=== PATIENT | female | born 1975 | race Caucasian/White ===

== ENCOUNTER 2018-08-19 15:16 | Observation (INO) ==
[2018-08-19] MEDS ORDERED: Naloxone 0.4 MG/ML INJ IVP PRN (20:16)
[2018-08-19] MEDS ORDERED: *HR* Dextrose 50 % in Water (Syg) 50 ML SYRINGE IVP PRN (20:19)
[2018-08-19] MEDS ORDERED: D5% in Water 1,000 ML IVC PRN (20:19)
[2018-08-19] MEDS ORDERED: Dextrose Gel 15 GM/37.5 ML TUBE PO PRN ×2 (20:19)
--- NOTE | 2018-08-19 20:49 | Internal Med History&Physical ---
Date of Encounter: 08/19/18 Time of Encounter: 20:46 Internal Medicine - H&P: HPI Chief complaint: Chest pain History of present illness: Ms. Krishnan is a 42 year old female with past medical history of obesity, hyperlipidemia, diabetes, hypertension and obstructive sleep apnea who initially presented to [facility] due to complaints of chest pain. Patient states that the pain began Wednesday while seated at restoration. Described as left-sided heaviness associated with shortness of breath and an intermittent "vibrating" sensation in her left arm. Patient states these episodes have been on and off for the past 2 days but does state that sometimes the vibrating sensation in her left arm may occur as an isolated event. States that chest pain typically lasts a minute when it occurs at rest. However, notes that it may last longer and resolves after she rests. Patient states that she was seen by urgent care earlier this morning for a boil. Was subsequently referred to the ED when she became lightheaded upon standing. She also reports for the past 2 days. Patient noticed heaviness in the chest associated with shortness of breath and lightheadedness. Family history significant for [place] on her mother and father's side. Patient received loading dose of aspirin by EMS. Denies any fever or headache, abdominal pain, nausea, vomiting or diarrhea. Initial troponin and EKG findings were negative. Patient states that she has an appointment with cardiology next week in [place] with a Dr. Mcmanus. Patient currently chest pain-free. Past Med Surg Social Fam HX - Past Medical History Medical history: diabetes, hypertension, myocardial infarction, other Psychiatric history: anxiety, depression - Past Surgical History Surgical History: hysterectomy, orthopedic, other Additional surgical history: TONSILLECTOMY, FOOT SURGERY - Social History Smoking Status: Former smoker Smokeless Tobacco Status: No Alcohol use: none Drug use: none - Family History Father Family Member Ethnicity: Non- Living Status: Hx Family Cardiac Disorders: Yes Mother Family Member Ethnicity: Non- Living Status: Still Living Hx Family Respiratory Disorders: Yes (COPD) Internal Medicine - H&P: Meds Glimepiride [Amaryl] 4 mg PO BID 05/02/15 [History] Insulin ASPART [NovoLOG] 25 unit SQ TIDWM 05/02/15 [History] Insulin Glargine,Hum.rec.anlog [Lantus Solostar] 100 unit SQ BID 05/02/15 [History] LORazepam [Ativan] 1 mg PO BID 05/02/15 [History] Metformin [Glucophage] 1,000 mg PO BID 05/02/15 [History] Orphenadrine [Norflex] 100 mg PO BID PRN #10 tablet.er 02/16/16 [Rx] Atorvastatin Calcium [Lipitor] 20 mg PO HS 09/03/16 [History] Buspirone HCl [Buspar] 5 mg PO BID 09/03/16 [History] Cholecalciferol (D-3) [Vitamin D] 1,000 unit PO DAILY 09/03/16 [History] Empagliflozin [Jardiance] 10 mg PO DAILY 09/03/16 [History] Gabapentin [Neurontin] 800 mg PO BID 09/03/16 [History] Liraglutide [Victoza 3-Brian] 1.8 mg SQ HS 09/03/16 [History] Magnesium Oxide [Magnesium] 400 mg PO HS 09/03/16 [History] Melatonin [Melatin] 3 mg PO HS PRN 09/03/16 [History] Omeprazole [PriLOSEC] 40 mg PO DAILY 09/03/16 [History] Paroxetine HCl [Paxil] 40 mg PO DAILY 09/03/16 [History] Tramadol HCl [Ultram] 50 mg PO BID PRN 09/03/16 [History] hydroCHLOROthiazide [Hydrochlorothiazide] 25 mg PO DAILY 09/03/16 [History] Allergy/AdvReac Type Severity Reaction Status Date / Time clindamycin Allergy Rash Verified 09/03/16 07:39 All Systems PM: A 10-system review of systems was performed and is negative for pertinent findings except as documented above in the HPI. - Constitutional Constitutional: no chills, no fever(s), no night sweats - EENT Eyes: no change in vision, no discharge, no pain, no photophobia Ears: no ear discharge, no ear pain, no tinnitus Nose, mouth and throat: no dysphagia, no nasal discharge, no neck pain, no sore throat - Cardiovascular Cardiovascular ROS IM: no chest pain, no diaphoresis, no dyspnea, no lightheadedness, no palpitations, no syncope - Respiratory Respiratory: no cough, no dyspnea, no wheezing, no excessive phlegm production - Gastrointestinal Gastrointestinal: no abdominal pain, no diarrhea, no hematemesis, no hematochezi a, no melena, no nausea, no vomiting - Genitourinary Genitourinary: no change in urinary stream, no dysuria, no flank pain, no hematuria - Musculoskeletal Musculoskeletal ROS IM: no numbness, no tingling - Integumentary Integumentary IM: no rash, no unusual bruising - Neurological Neurological ROS: no confusion, no convulsions, no focal weakness, no numbness, no tingling, no tremor(s) - Hematologic/Lymphatic Hematologic/Lymphatic: no easy bruising - Constitutional Vitals: Temp Pulse Resp BP Pulse Ox 98 F 87 16 111/71 96 08/19/18 20:28 08/19/18 20:28 08/19/18 20:28 08/19/18 20:28 08/19/18 20:28 Exam: General: Alert and oriented Skin:Normal color, no rash, no lesions. HEENT:EOM, pupils equal, round and reactive. Cardiovascular:Normal S1 & S2, no rubs, murmurs or gallops. No JVD. Pulse regular. Lungs:Normal breath sounds, no wheezes or crackles. Abdomen:Soft, non-tender, no rigidity. Extremities:No deformity, no edema or tenderness, no joint swelling or clubbing. Neurological:Normal cognition and motor skills. Pulses:Carotid and radial pulses normal +2. Rest of the physical exam is non contributory Internal Med - H&P Results - Labs CBC & Chem 7: 08/19/18 20:35 08/19/18 20:35 - Assessment and plan (1) Chest pain, rule out acute myocardial infarction Current Visit: Yes Status: Acute Assessment and plan: Patient presents with left-sided chest heaviness associated with vibrating sensation in her left arm; occurring at rest and with exertion. Nonpleuritic, nonreproducible. Patient has significant risk factors for coronary artery disease including obesity, hypertension, diabetes, previous smoking history and obstructive sleep apnea. Initial troponin negative. EKG does not show any ischemic changes. Patient received loading dose of aspirin and is currently chest pain-free. Has appointment with cardiology scheduled in one week. -Telemetry -Trend troponin; hold off anticoagulation unless troponin rises -Given patient's risk factors would appreciate cardiology involvement before any further workup including stress testing. Addendum: Patient's second troponin came back slightly elevated at 0.06 and then subsequently dropped to 0.03. Discussed case with Dr. Vallejo with cardiology. No recommendation for heparin at this time and he will see patient in the morning. (2) Obstructive sleep apnea Current Visit: Yes Status: Acute Assessment and plan: History of obstructive sleep apnea on CPAP. Continue CPAP at night (3) Diabetes type 2, uncontrolled Current Visit: No Status: Acute Assessment and plan: Diabetic diet. Blood glucose checks. Sliding scale insulin. Qualifiers: Qualified Code(s): E11.65 - Type 2 diabetes mellitus with hyperglycemia (4) Hypertension Current Visit: No Status: Acute Assessment and plan: Blood pressure stable. Resume home antihypertensives. Monitor. Qualifiers: Hypertension type: unspecified Qualified Code(s): I10 - Essential (primary) hypertension (5) DVT prophylaxis Current Visit: Yes Status: Acute Assessment and plan: Subcutaneous heparin - Time Spent With Patient Total time spent is greater than 50% in coordination of care (as documented) at patient's floor/unit and/or counseling patient:
[2018-08-19 21:16] LABS: Basophils # 0.1 K/mcL (0.0-0.2); Basophils % 0.5 %; Eosinophils # 0.2 K/mcL (0.0-0.6); Eosinophils % 1.6 %; Hematocrit 36.8 % (35.3-44.9); Hemoglobin 11.6 g/dL (11.5-15.4); Immature Granulocytes % 1.3 % (0-4); Lymphocytes # 3.2 K/mcL (0.6-4.6); Lymphocytes % 23.4 %; Mean Corpuscular HGB Conc 31.5 g/dL (31.6-35.5); Mean Corpuscular Hemoglobin 30.2 pg (28.0-33.3); Mean Corpuscular Volume 95.8 fL (83.0-100.0); Mean Platelet Volume 9.7 fL (9.4-12.4); Monocytes # 0.9 K/mcL (0.0-1.3); Monocytes % 6.7 %; Platelet Count 290 K/mcL (140-400); Red Blood Count 3.84 M/mcL (3.82-4.97); Red Cell Distribution Width 13.2 % (11.5-14.5); Segmented Neutrophils % 66.5 %
[2018-08-19 21:34] LABS: Estimated Average Glucose 220 mg/dl; Hemoglobin A1C 9.3 %
[2018-08-19 21:37] LABS: Albumin 3.4 g/dL (3.5-5.7); Albumin/Globulin Ratio 1.1 (1.1-2.2); Bilirubin,Total 0.2 mg/dL (0.3-1.0); Calcium 8.7 mg/dL (8.6-10.3); Chol/HDL Ratio 4.6 (0-4.9); Magnesium 1.5 mg/dL (1.6-2.6); Potassium 3.7 mEq/L (3.5-5.1); Total Protein 6.4 g/dL (6.4-8.9)
[2018-08-19] MEDS: Insulin LISPRO 300 UNITS/3 ML VIAL SQ SCH (22:26)
[2018-08-19] MEDS: *HR* Heparin 5,000 UNIT/ML VIAL SQ SCH (22:27)
[2018-08-20] MEDS: *HR* Heparin 5,000 UNIT/ML VIAL SQ SCH ×3 (05:47→20:40)
[2018-08-20] MEDS: Insulin LISPRO 300 UNITS/3 ML VIAL SQ SCH ×3 (07:44→16:14)
--- NOTE | 2018-08-20 12:47 | Cardiology Consult Note ---
<Zach Mcmanus - Last Filed: 08/20/18 12:47> Date of Encounter: 08/20/18 Time of Encounter: 12:30 Assessment and Plan (1) Chest pain, rule out acute myocardial infarction Status: Acute Per Cardiology: Initial troponin 0.06 and subsequently negative. Currently chest pain-free. Does have significant risk factors for CAD. Negative stress test in 2013. We will check another troponin. Check echocardiogram. Plan to proceed with nonexercise nuclear stress test-- will require today testing due to BMI. We will consider left heart catheterization if any concerning findings on repeat troponin or echocardiogram. Patient verbalized understanding and agreed with plan. Discussed with primary service. Discussed with Dr. Vallejo. (2) Palpitations Status: Acute Per Cardiology: Apparent pending follow-up appointment with cardiology next few weeks in outpatient setting for palpitations. Currently denies any symptoms. Telemetry reviewed with average heart rate passed 24 hours 89, no events appreciated. Discussion w patient/family: The assessment and plan as outlined above was discussed with the patient who expressed understanding and agreement. All questions were answered. Thank you for involving us in the care of your patient. Please call with any questions. History of Present Illness Consult date: 08/20/18 Requesting physician: Deejay Munoz Consult reason: CP, Mild trop Chief complaint: CP History of present illness: Ms. Krishnan is a 42 year old female with a relevant past medical history of morbid obesity, DM 2, past history of nicotine abuse smoking a pack and a half per day for 20 years-- reports quit smoking 3 years ago, hypertension, hyperlipidemia, CLAUDINE with CPAP. Reports positive family history with father with CAD/MA and bypass surgery beginning in his 40s. Cardiology consult for chest pain and initial mild troponin elevation. Patient reports pending outpatient follow-up with cardiology in a few weeks per PCP for concerns of palpitations and fluttering sensations intermittently over the past few weeks. She indicates a few days ago she developed midsternal chest pressure/heaviness at rest and with exertion. She reports symptoms currently subsided. She does report over the past few weeks overall increase in fatigue. She does report worsening dyspnea on exertion over the past few weeks as well. She denies any edema. Denies any active bleeding or blood loss. Denies any dizziness, syncope, falls. Reports no recent cardiac testing. Past Med Surg Social Fam HX - Past Medical History Attestation: Yes The following information was validated with the patient. Source: patient, old records reviewed Medical history: diabetes, hypertension, myocardial infarction, other Psychiatric history: anxiety, depression - Past Surgical History Surgical History: hysterectomy, orthopedic, other Additional surgical history: TONSILLECTOMY, FOOT SURGERY - Social History Smoking Status: Former smoker Smokeless Tobacco Status: No Alcohol use: none Drug use: none - Family History Father Family Member Ethnicity: Non- Living Status: Hx Family Cardiac Disorders: Yes Mother Family Member Ethnicity: Non- Living Status: Still Living Hx Family Respiratory Disorders: Yes (COPD) Medications and Allergies Orphenadrine [Norflex] 100 mg PO BID PRN #10 tablet.er 02/16/16 [Rx] Atorvastatin Calcium [Lipitor] 20 mg PO HS 09/03/16 [History] Liraglutide [Victoza 3-Brian] 1.8 mg SQ HS 09/03/16 [History] Omeprazole [PriLOSEC] 40 mg PO DAILY 09/03/16 [History] Duloxetine HCl [Cymbalta] 60 mg PO BID 08/20/18 [History] Ergocalciferol (VITAMIN D2) [Vitamin D2] 50,000 unit PO QWEEK 08/20/18 [History] HydrOXYzine 10 mg PO BID 08/20/18 [History] Insulin Regular U-500 [HumuLIN R U-500] 145 unit SQ BID 08/20/18 [History] Losartan/Hydrochlorothiazide [Hyzaar 100-25 Tablet] 1 tab PO DAILY 08/20/18 [History] Pregabalin [Lyrica] 50 mg PO TID 08/20/18 [History] Quetiapine Fumarate [Seroquel] 50 mg PO DAILY 08/20/18 [History] dilTIAZem HCl [Diltiazem 24Hr ER] 120 mg PO DAILY 08/20/18 [History] Allergy/AdvReac Type Severity Reaction Status Date / Time clindamycin Allergy Rash Verified 09/03/16 07:39 All Systems Review: The remainder of the systems were reviewed and are negative - Constitutional Constitutional: fatigue - Cardiovascular Cardiovascular: as per HPI, chest pain at rest, chest pain with exertion, dyspnea on exertion Physical Examination Vital Signs, Last 4 Hours Temp Pulse Resp BP Pulse Ox 08/20/18 11:05 97.9 F 86 16 115/77 95 General: Conversant, No Apparent Distress HEENT: Atraumatic, Normocephaly, Mucus Membranes Moist Neck: No JVD, Normal carotid pulses Cardiac: Reg Rate and Rhythm, Normal S1 and S2, No Murmur Lungs: Normal Breath Sounds, No Wheeze, Rales, Rhonchi Neuro: Alert and responsive, No focal deficits noted Abdomen: Soft, Non-Tender, Other (Morbidly obese) Skin: No rashes noted on visualized skin Musculoskeletal: No Chest Wall Tenderness Extremities: No Clubbing, No Cyanosis, No Edema, Normal Pulses Results 08/19/18 20:35 08/19/18 20:35 Lab Results Laboratory Tests 08/19/18 08/19/18 08/19/18 20:35 20:35 20:35 WBC 13.6 H Hgb 11.6 Hct 36.8 Creatinine 1.46 H Est GFR (Non-Af Amer) 39 L Hemoglobin A1c 9.3 H Magnesium 1.5 L AST 11 L ALT 13 Troponin I LDL Cholesterol, Calc 37 08/19/18 08/20/18 20:35 03:17 WBC Hgb Hct Creatinine Est GFR (Non-Af Amer) Hemoglobin A1c Magnesium AST ALT Troponin I 0.06 H* < 0.03 LDL Cholesterol, Calc Active Medications Dextrose/Water (Dextrose 50% (Syg)) 25 ml IVP AD PRN PRN Reason: Hypoglycemia Stop: 02/18/19 20:20 Glucagon (Glucagen) 1 mg IM ONCE PRN PRN Reason: Hypoglycemia Stop: 02/18/19 20:20 Glucose (Gluctose) 15 gm PO ONCE PRN PRN Reason: Hypoglycemia Stop: 02/18/19 20:20 Glucose (Gluctose) 30 gm PO ONCE PRN PRN Reason: Hypoglycemia Stop: 02/18/19 20:20 Heparin Sodium (Porcine) (Heparin) 5,000 unit SQ Q8HCO JOVANNY Stop: 02/18/19 22:01 Last Admin: 08/20/18 05:47 Dose: 5,000 unit Dextrose (Dextrose 5%) 1,000 mls @ 100 mls/hr IVC .Q10H PRN PRN Reason: HYPOGLYCEMIA Stop: 02/18/19 20:20 Insulin Human Lispro (Humalog) 0 units SQ TIDAC [facility]; Protocol Stop: 02/18/19 20:31 Last Admin: 08/20/18 12:02 Dose: Not Given Naloxone HCl (Narcan) 0.4 mg IVP Q2MIN PRN PRN Reason: SEE COMMENTS Stop: 02/18/19 20:17 - Imaging and Cardiology Stress Test: pending Echo: pending - EKG Interpretation EKG results cardiology: personally reviewed, normal ECG, sinus rhythm, no diagnostic ischemia Consult Discharge Plan - Plan Instructions: Angina (DC) Additional Instructions: Please check with Dr. Malagon regarding being on both Paxil and Cymbalta. (No Paxil filled since 11/2017) Referrals: Arielle Malagon MD [Primary Care Provider] - (Please call PCP to schedule follow up 7 days from visit.) <YoniColby Silva - Last Filed: 08/21/18 19:50> Date of Encounter: 08/21/18 Time of Encounter: 17:00 - Attending Attestation I have personally performed a face to face evaluation on this patient. I have reviewed and agree with the care plan. History and Exam by me shows: cc; shortness of breath HPI: Hx obtained from medical record, pt has dementia, not a reliable historian [facility] with complaints of increasing shortness of breath and labored breathing over last three days. Pt had and echo ordered to evaluate LV function, reportedly EF decreased, consult placed to evaluate lowered EF. ROS: reviewed PMH; reviewed Labs and Xrays reviewed PE; pt seen and examined, agree with findings as documented. IMP/Plan: 1. Profound confusion, secondary to previous stroke, multiple brain surgeries for cancer, pt unalbe to relate symptoms 2. Increased shortness of breath, multifactorial, is responding to IV diuresis, beta blockers, would continue non-invasive strategy, Pt is not a candidate for invasive approach. Assessment and Plan Discussion w patient/family: The assessment and plan as outlined above was discussed with the patient and/or family members who expressed understanding and agreement. All questions were answered. Thank you for involving us in the care of your patient. Please call with any questions. History of Present Illness History of present illness: Ms. Krishnan is a 42 year old female All Systems Review: The remainder of the systems were reviewed and are negative Results 08/21/18 11:10 08/21/18 11:10 Lab Results 08/21/18 08/21/18 11:10 11:10 WBC 13.3 H Hgb 12.5 Hct 39.0 Plt Count 307 Sodium 136 Potassium 4.7 Chloride 102 Carbon Dioxide 27 BUN 29 H Creatinine 1.32 H Glucose 324 H Calcium 9.4 Magnesium 1.7
[2018-08-20] MEDS ORDERED: Perflutren Lipid Microsphere 1.3 ML in 0.9 % Sodium Chloride 8.7 ML IVP ONE (14:16)
[2018-08-20] MEDS ORDERED: Perflutren Lipid Microsphere 2 ML VIAL ONE (14:18)
--- NOTE | 2018-08-20 19:46 | Internal Med Progress Note ---
Hospitalist Progress Note - Encounter Date of Encounter: 08/20/18 Time of Encounter: 14:00 - Subjective Interval History: Ms Krishnan is currently in observation for chest pain. She remains moderate to high risk. Ms Krishnan had first part of stress test today. No further chest pain. No fever or chills. No abd pain or other new symptoms. - Exam Vitals: Temp Pulse Resp BP Pulse Ox 98.5 F 92 16 123/85 96 08/20/18 19:05 08/20/18 19:05 08/20/18 19:05 08/20/18 19:05 08/20/18 19:05 Exam: General: Alert and oriented. Comfortable at this time. Skin: Normal color, no rash, no lesions. H: Normocephalic. EENT: EOMI, pupils equal. Mucus membranes moist. Cardiovascular: Normal S1 & S2, no murmurs or gallops. Pulse regular. Lungs: Normal breath sounds, no wheezes or crackles. Abdomen: Soft, non-tender, no rigidity. Normal bowel sounds. Extremities: No deformity, no edema or tenderness, Neurological: Normal cognition and motor skills. Pulses: Carotid and radial pulses normal +2. Rest of the physical exam is non contributory - Assessment and Plan (1) Chest pain, rule out acute myocardial infarction Current Visit: Yes Status: Acute Assessment and Plan: Pt presented with chest pain. Now is asymptomatic Stress test ordered - first part done today. (2) Diabetes type 2, uncontrolled Current Visit: No Status: Chronic Assessment and Plan: Blood sugar uncontrolled. Currently getting insulin coverage. (3) Hypertension Current Visit: No Status: Chronic Assessment and Plan: Appears to be controlled at this time. (4) Obstructive sleep apnea Current Visit: Yes Status: Chronic Assessment and Plan: History of obstructive sleep apnea on CPAP. Continue CPAP at night (5) DVT prophylaxis Current Visit: Yes Status: Acute (6) Morbid obesity with BMI of 50.0-59.9, adult Current Visit: Yes Status: Chronic Assessment and Plan: Chronic issue - Time Spent with Patient Total time spent is greater than 50% in coordination of care (as documented) at patient's floor/unit and/or counseling patient: Internal Medicine: Result - Labs CBC & Chem 7: 08/19/18 20:35 08/19/18 20:35 Labs: Short CBC 08/19/18 Range/Units 20:35 WBC 13.6 H (4.3-11.1) K/mcL Hgb 11.6 (11.5-15.4) g/dL Hct 36.8 (35.3-44.9) % Plt Count 290 (140-400) K/mcL Neutrophils # 9.0 H (1.6-8.9) K/mcL BMP 08/19/18 20:35 Sodium 137 Potassium 3.7 Chloride 104 Carbon Dioxide 25 BUN 31 H Creatinine 1.46 H Glucose 223 H Calcium 8.7 Cardiac Enzymes 08/19/18 08/20/18 08/20/18 Range/Units 20:35 03:17 12:59 Troponin I 0.06 H* < 0.03 0.03 (< 0.04) ng/mL Liver Function 08/19/18 Range/Units 20:35 Total Bilirubin 0.2 L (0.3-1.0) mg/dL AST 11 L (13-39) Units/L ALT 13 (7-52) Units/L Alkaline Phosphatase 119 H (34-104) Units/L Albumin 3.4 L (3.5-5.7) g/dL - Impressions Impressions Echocardiogram 08/20/18 12:45 Impressions: LVEF 55%. Definity echo contrast was used. Mild left ventricular diastolic dysfunction. Normal right ventricular structure and function. No significant valvular dysfunction. No pulmonary hypertension. Left Ventricular Wall Motion: Rest Echo Findings All wall segments showed normal motion. Findings: Study Quality * Technically challenging due to body habitus. ECG Findings * Normal sinus rhythm. Left Ventricle * Definity echo contrast was used. * Mild left ventricular diastolic dysfunction. * LVEF 55%. * LV chamber size and wall thickness appear normal. Right Ventricle * Normal right ventricular structure and function. Left Atrium * Normal left atrial size. Right Atrium * Normal right atrial size. Aortic Valve * No aortic regurgitation. * No aortic stenosis. * Aortic valve not well visualized. Mitral Valve * Normal mitral valve structure. * No mitral stenosis. * Trace mitral regurgitation. Tricuspid Valve * Tricuspid valve not well visualized. * Trace tricuspid regurgitation. Pulmonic Valve * Pulmonic valve is not well visualized. * No pulmonic stenosis. * Trace pulmonic regurgitation. Pulmonary Artery * Pulmonary artery not well visualized. Aorta * Normally sized aortic root. Pericardium * There is no pericardial effusion present. Consult Discharge Plan - Plan Referrals: Arielle Malagon MD [Primary Care Provider] - (2) Diabetes type 2, uncontrolled Qualifiers: Glycemic state: with hyperglycemia Qualified Code(s): E11.65 - Type 2 diabetes mellitus with hyperglycemia (3) Hypertension Qualifiers: Hypertension type: essential hypertension Qualified Code(s): I10 - Essential (primary) hypertension
[2018-08-20] MEDS ORDERED: Orphenadrine 100 MG TABLET.ER PO PRN (19:49)
[2018-08-20] MEDS: Pregabalin 50 MG CAPSULE PO SCH (20:40)
[2018-08-21] MEDS ORDERED: Regadenoson 0.4 MG/5 ML SYRINGE IVP ONE (05:59)
[2018-08-21] MEDS: *HR* Heparin 5,000 UNIT/ML VIAL SQ SCH (06:35)
[2018-08-21] MEDS ORDERED: Diltiazem CD (24hr) 120 MG CAPSULE PO SCH (09:00)
[2018-08-21] MEDS: Insulin LISPRO 300 UNITS/3 ML VIAL SQ SCH ×2 (10:02→13:22)
--- NOTE | 2018-08-21 10:25 | Event Note ---
Date of Encounter: 08/21/18 Time of Encounter: 10:24 - Cardiology Event Note Laboratory Tests 08/19/18 08/20/18 08/20/18 20:35 03:17 12:59 Troponin I 0.06 H* < 0.03 0.03 ECHO: Impressions: LVEF 55%. Definity echo contrast was used. Mild left ventricular diastolic dysfunction. Normal right ventricular structure and function. No significant valvular dysfunction. No pulmonary hypertension. Left Ventricular Wall Motion: Rest Echo Findings All wall segments showed normal motion. Seen today during stress test, denies any concerns or night. She currently denies any chest pain. 3rd troponin negative. EF preserved on echo. Further recommendations after stress test.
[2018-08-21 11:22] VITALS: BP 122/80
[2018-08-21 11:26] LABS: Hemoglobin 12.5 g/dL (11.5-15.4); Mean Corpuscular HGB Conc 32.1 g/dL (31.6-35.5); Mean Corpuscular Hemoglobin 30.3 pg (28.0-33.3); Mean Corpuscular Volume 94.4 fL (83.0-100.0); Mean Platelet Volume 9.5 fL (9.4-12.4); Platelet Count 307 K/mcL (140-400); Red Blood Count 4.13 M/mcL (3.82-4.97); Red Cell Distribution Width 13.2 % (11.5-14.5)
[2018-08-21] MEDS: Pregabalin 50 MG CAPSULE PO SCH (11:27)
[2018-08-21 11:47] LABS: Calcium 9.4 mg/dL (8.6-10.3); Magnesium 1.7 mg/dL (1.6-2.6); Potassium 4.7 mEq/L (3.5-5.1)
--- NOTE | 2018-08-21 14:27 | Discharge Summary ---
- NOTES TO OUTPATIENT PROVIDER Notes to Outpatient Provider: Pt placed in observation for chest discomfort. Had stress and echo that were negative. To follow up outpatient. Orders not resulted at time of discharge: Pending orders 08/20/18 12:46 NM hannah perf SPECT multi [NM] Routine Date of Encounter: 08/21/18 Time of Encounter: 14:24 - Discharge Diagnosis (1) Diabetes type 2, uncontrolled Priority: Secondary Status: Chronic Qualifiers: Glycemic state: with hyperglycemia Qualified Code(s): E11.65 - Type 2 diabe inocencio mellitus with hyperglycemia (2) Hypertension Priority: Secondary Status: Chronic Qualifiers: Hypertension type: essential hypertension Qualified Code(s): I10 - Essential (primary) hypertension (3) Obstructive sleep apnea Priority: Secondary Status: Chronic (4) Morbid obesity with BMI of 50.0-59.9, adult Priority: Secondary Status: Chronic (5) Chest pain Priority: Primary Status: Suspected Qualifiers: Chest pain type: chest pain due to myocardial ischemia Ischemic chest pain type: stable angina pectoris Qualified Code(s): I20.8 - Other forms of angina pectoris Hospital course: Ms. Krishnan is a 42 year old female with hx of DM and HTN presented to ED with complaints of tingling L arm. She was placed in observation for further evalu ation. Ms Krishnan was placed in observation for r/o AL. She had a slight initial increase in troponin. She was seen by cardiology and stress test and echo done. Stress negative for ischemia and echo OK. She is now pain free and afebrile. She is ready for discharge home and outpatient follow up. - Time Spent with Patient Total time spent providing and/or coordinating discharge services: - Discharge Medications Home Medications: Orphenadrine [Norflex] 100 mg PO BID PRN #10 tablet.er 02/16/16 [Rx] Atorvastatin Calcium [Lipitor] 20 mg PO HS 09/03/16 [History] Liraglutide [Victoza 3-Brian] 1.8 mg SQ HS 09/03/16 [History] Omeprazole [PriLOSEC] 40 mg PO DAILY 09/03/16 [History] Duloxetine HCl [Cymbalta] 60 mg PO BID 08/20/18 [History] Ergocalciferol (VITAMIN D2) [Vitamin D2] 50,000 unit PO QWEEK 08/20/18 [History] HydrOXYzine 10 mg PO BID 08/20/18 [History] Insulin Regular U-500 [HumuLIN R U-500] 145 unit SQ BID 08/20/18 [History] Losartan/Hydrochlorothiazide [Hyzaar 100-25 Tablet] 1 tab PO DAILY 08/20/18 [History] Pregabalin [Lyrica] 50 mg PO TID 08/20/18 [History] Quetiapine Fumarate [Seroquel] 50 mg PO DAILY 08/20/18 [History] dilTIAZem HCl [Diltiazem 24Hr ER] 120 mg PO DAILY 08/20/18 [History] Allergies/Adverse Reactions: Allergy/AdvReac Type Severity Reaction Status Date / Time clindamycin Allergy Rash Verified 09/03/16 07:39 Date of admission: 08/19/18 17:37 Primary care physician: Arielle Malagon MD Consults: 08/20/18 08:20 Consult to Cardiology [CONS] Routine Comment: Consulting Provider: [facility] Reason for Consult: Chest pain Appears Dr. Gongora discussed with Dr. Vallejo Call Completed: Yes Discharging clinician: Deejay Munoz Anticipated date of discharge: 08/21/18 - Constitutional Vitals: Temp Pulse Resp BP Pulse Ox 98.7 F 93 18 122/80 95 08/21/18 11:18 08/21/18 11:18 08/21/18 11:18 08/21/18 11:18 08/21/18 11:32 General appearance: Present: A&O X 3, pleasant, answers questions appropriately Exam: See below - Head Head exam: Present: normocephalic - Eye Eye exam: Present: EOMI, conjuntiva pink - ENT ENT exam: Present: mucous membranes moist - Respiratory Respiratory exam: Present: CTAB. Absent: rales, rhonchi, wheezes - Cardiovascular Cardiovascular exam: Present: RRR. Absent: tachycardia - GI/Abdominal GI/Abdominal exam: Present: soft. Absent: tenderness - Extremities Exam Extremities exam: Present: warm. Absent: pedal edema, tenderness - Neurological Exam Neurological exam: Present: alert, oriented X3 - Skin Skin exam: Present: dry, warm. Absent: rash - Patient Status Disposition: Home, Self-Care Condition: Good Functional capacity at discharge: independent ambulation Overall status at discharge: patient is progressing back to baseline - Discharge Instructions Follow Up With: Arielle Malagon MD [Primary Care Provider] - Additional Instructions: Please check with Dr. Malagon regarding being on both Paxil and Cymbalta. (No Paxil filled since 11/2017) - Diet and Activity Activity: increase activity as tolerated Diet: advance to your usual diet
== END 2018-08-21 15:19 | disposition home or self-care (01) ==
LOC: 3BNU → SUATTDRO 17:37
PROVIDERS: ADMIT Internal Medicine; ATTEND Internal Medicine

== ENCOUNTER 2019-03-26 18:19 | Observation (INO) ==
[2019-03-26 18:48] LABS: Basophils # 0.1 K/mcL (0.0-0.2); Basophils % 0.5 %; Eosinophils # 0.3 K/mcL (0.0-0.6); Eosinophils % 2.5 %; Hemoglobin 11.3 g/dL (11.5-15.4); Immature Granulocytes % 1.5 % (0-4); Lymphocytes % 15.6 %; Mean Corpuscular HGB Conc 32.3 g/dL (31.6-35.5); Mean Corpuscular Hemoglobin 30.8 pg (28.0-33.3); Mean Corpuscular Volume 95.4 fL (83.0-100.0); Mean Platelet Volume 9.6 fL (9.4-12.4); Monocytes # 0.9 K/mcL (0.0-1.3); Monocytes % 6.9 %; Neutrophils # 9.2 K/mcL (1.6-8.9); Platelet Count 298 K/mcL (140-400); Red Blood Count 3.67 M/mcL (3.82-4.97); Red Cell Distribution Width 13.3 % (11.5-14.5); White Blood Count 12.5 K/mcL (4.3-11.1)
[2019-03-26 19:13] LABS: Troponin I < 0.03 ng/mL (< 0.04)
[2019-03-26 19:15] LABS: BUN/Creatinine Ratio 19 (6-26); Blood Urea Nitrogen 27 mg/dL (6-20); Calcium 8.8 mg/dL (8.6-10.3); Carbon Dioxide 28 mEq/L (23-29); Chloride 97 mEq/L (98-107); Glucose 524 mg/dL (70-105); Osmolality,Calculated 303 (280-300); Potassium 5.3 mEq/L (3.5-5.1); Sodium 132 mEq/L (136-145); eGFR For African Americans 48 (> 60); eGFR For Non-African Americans 40 (> 60)
[2019-03-26] MEDS ORDERED: Insulin Human Regular 10 UNIT in 0.9 % Sodium Chloride 10 ML IV ONE (19:46)
[2019-03-26] MEDS ORDERED: ceFAZolin 1,000 MG in Water for inj. (sterile) 10 ML IVP ONE (19:48)
[2019-03-26] MEDS ORDERED: 0.9 % Sodium Chloride 1,000 ML IVC ONE (19:55)
[2019-03-27] MEDS ORDERED: Naloxone 0.4 MG/ML INJ IVP PRN (01:24)
[2019-03-27] MEDS ORDERED: *HR* HYDROcodone/Acet 5/325 mg TABLET PO PRN (01:24)
[2019-03-27] MEDS ORDERED: Acetaminophen 325 MG TABLET PO PRN (01:24)
[2019-03-27 02:42] LABS: Hematocrit 34.4 % (35.3-44.9); Hemoglobin 10.8 g/dL (11.5-15.4); Mean Corpuscular HGB Conc 31.4 g/dL (31.6-35.5); Mean Corpuscular Hemoglobin 30.8 pg (28.0-33.3); Mean Platelet Volume 10.1 fL (9.4-12.4); Platelet Count 276 K/mcL (140-400); Red Blood Count 3.51 M/mcL (3.82-4.97); Red Cell Distribution Width 13.5 % (11.5-14.5); White Blood Count 11.8 K/mcL (4.3-11.1)
[2019-03-27 03:03] LABS: Calcium 8.2 mg/dL (8.6-10.3); Potassium 4.7 mEq/L (3.5-5.1)
[2019-03-27] MEDS ORDERED: Insulin Human Regular 10 UNIT in 0.9 % Sodium Chloride 10 ML IV ONE (03:30)
[2019-03-27] MEDS ORDERED: 0.9 % Sodium Chloride 1,000 ML IVC ONE (03:35)
[2019-03-27] MEDS: *HR* Heparin 5,000 UNIT/ML VIAL SQ SCH ×2 (05:10→17:40)
[2019-03-27] MEDS ORDERED: D5% in Water 1,000 ML IVC PRN (09:00)
[2019-03-27] MEDS ORDERED: *HR* Dextrose 50 % in Water (Syg) 50 ML SYRINGE IVP PRN (09:00)
[2019-03-27] MEDS ORDERED: Dextrose Gel 15 GM/37.5 ML TUBE PO PRN ×2 (09:00)
[2019-03-27] MEDS ORDERED: Furosemide 40 MG/4 ML VIAL IVP ONE (10:15)
[2019-03-27] MEDS: ceFAZolin 1,000 MG in Water for inj. (sterile) 10 ML IVP SCH ×3 (10:16→23:20)
[2019-03-27] MEDS: Insulin LISPRO 300 UNITS/3 ML VIAL SQ SCH ×3 (10:21→16:30)
[2019-03-27] MEDS: Ipratropium/Albuterol Neb 3 ML IH SCH ×2 (11:11→16:08)
[2019-03-27] MEDS ORDERED: Insulin LISPRO 300 UNITS/3 ML VIAL SQ SCH ×2 (11:30→21:00)
[2019-03-27 11:33] LABS: Estimated Average Glucose 252 mg/dl
[2019-03-27] MEDS ORDERED: *HR* Insulin Regular U-500 500 UNIT/ML SQ SCH (12:00)
[2019-03-27] MEDS ORDERED: *HR* Insulin Regular U-500 500 UNIT/ML SQ ONE (12:26)
[2019-03-27] MEDS: Losartan/HCTZ 50-12.5 TABLET PO SCH (16:28)
[2019-03-27] MEDS: *HR* Insulin Regular U-500 500 UNIT/ML SQ SCH (16:29)
[2019-03-27] MEDS ORDERED: Ipratropium/Albuterol Neb 3 ML IH PRN (17:39)
[2019-03-27] MEDS ORDERED: Perflutren Lipid Microsphere 1.3 ML in 0.9 % Sodium Chloride 8.7 ML IVP ONE (19:19)
[2019-03-27] MEDS ORDERED: Aminoglycoside Consult 1 EACH MC ONE (20:17)
[2019-03-27] MEDS: *HR* LORazepam 1 MG TABLET PO SCH (20:47)
[2019-03-28 04:36] LABS: Magnesium 2.1 mg/dL (1.6-2.6); Potassium 4.5 mEq/L (3.5-5.1)
[2019-03-28] MEDS: *HR* Heparin 5,000 UNIT/ML VIAL SQ SCH (05:45)
[2019-03-28] MEDS: ceFAZolin 1,000 MG in Water for inj. (sterile) 10 ML IVP SCH (07:43)
[2019-03-28] MEDS: Insulin LISPRO 300 UNITS/3 ML VIAL SQ SCH ×2 (07:44→13:41)
[2019-03-28] MEDS: *HR* LORazepam 1 MG TABLET PO SCH (07:44)
[2019-03-28] MEDS: Losartan/HCTZ 50-12.5 TABLET PO SCH (07:44)
[2019-03-28] MEDS: *HR* Insulin Regular U-500 500 UNIT/ML SQ SCH ×2 (08:57→13:35)
[2019-03-28] MEDS ORDERED: Cholecalciferol (D-3) 1,000 UNIT (25MCG) TABLET PO SCH (09:00)
[2019-03-28 11:42] VITALS: BP 147/85
== END 2019-03-28 13:51 | disposition home or self-care (01) ==
LOC: EMEROOARM 18:19 → 3BNU 18:19 → SUATTDRO 20:16 → 3BNU 21:18
PROVIDERS: ADMIT Family Medicine; ATTEND Family Medicine

== ENCOUNTER 2019-10-18 00:27 | Inpatient (IN) ==
[2019-10-18] MEDS ORDERED: Naloxone 0.4 MG/ML INJ IVP PRN (06:08)
[2019-10-18 06:33] LABS: Hematocrit 31.5 % (35.3-44.9); Hemoglobin 10.1 g/dL (11.5-15.4); Mean Corpuscular HGB Conc 32.1 g/dL (31.6-35.5); Mean Corpuscular Hemoglobin 31.2 pg (28.0-33.3); Mean Corpuscular Volume 97.2 fL (83.0-100.0); Mean Platelet Volume 9.3 fL (9.4-12.4); Platelet Count 351 K/mcL (140-400); Red Blood Count 3.24 M/mcL (3.82-4.97); Red Cell Distribution Width 12.5 % (11.5-14.5); White Blood Count 17.8 K/mcL (4.3-11.1)
[2019-10-18 06:34] LABS: INR 1.3; Prothrombin Time 14.7 Seconds (9.4-12.1)
[2019-10-18 06:49] LABS: Calcium 8.2 mg/dL (8.6-10.3); Magnesium 1.4 mg/dL (1.6-2.6); Phosphorous 4.1 mg/dL (2.7-4.5); Potassium 3.4 mEq/L (3.5-5.1)
[2019-10-18] MEDS ORDERED: *HR* Dextrose 50 % in Water (Syg) 50 ML SYRINGE IVP PRN (07:08)
[2019-10-18] MEDS ORDERED: D5% in Water 1,000 ML IVC PRN (07:08)
[2019-10-18] MEDS ORDERED: Dextrose Gel 15 GM/37.5 ML TUBE PO PRN ×2 (07:08)
[2019-10-18] MEDS: cefTRIAXone 1,000 MG in Water for inj. (sterile) 10 ML IVP SCH (08:49)
[2019-10-18] MEDS: 0.9 % Sodium Chloride 1,000 ML IVC SCH ×2 (08:57→21:11)
[2019-10-18] MEDS ORDERED: Insulin DETEMIR 100 UNIT/ML X5UNITS SQ STA (08:58)
[2019-10-18] MEDS ORDERED: Insulin LISPRO 300 UNITS/3 ML VIAL SQ SCH (12:00)
[2019-10-18] MEDS: Insulin LISPRO 300 UNITS/3 ML VIAL SQ SCH ×2 (12:37→17:44)
[2019-10-18] MEDS ORDERED: Nystatin Cream 15 GM TUBE TP PRN (13:20)
[2019-10-18] MEDS: Gabapentin 400 MG CAPSULE PO SCH ×2 (14:55→21:11)
[2019-10-18] MEDS ORDERED: Albuterol 2.5 MG/3 ML NEBULIZER IH PRN (15:00)
[2019-10-18] MEDS: Budesonide/Formoterol 160/4.5 1 PUFF INH IH SCH (20:34)
[2019-10-18] MEDS ORDERED: Insulin DETEMIR 100 UNIT/ML X5UNITS SQ SCH (21:00)
[2019-10-19] MEDS: Insulin LISPRO 300 UNITS/3 ML VIAL SQ SCH ×10 (00:25→23:13)
[2019-10-19 05:50] LABS: Hematocrit 29.7 % (35.3-44.9); Hemoglobin 9.1 g/dL (11.5-15.4); Mean Corpuscular HGB Conc 30.6 g/dL (31.6-35.5); Mean Corpuscular Hemoglobin 30.5 pg (28.0-33.3); Mean Corpuscular Volume 99.7 fL (83.0-100.0); Mean Platelet Volume 9.6 fL (9.4-12.4); Platelet Count 298 K/mcL (140-400); Red Blood Count 2.98 M/mcL (3.82-4.97); Red Cell Distribution Width 12.7 % (11.5-14.5); White Blood Count 11.8 K/mcL (4.3-11.1)
[2019-10-19 06:12] LABS: Calcium 7.8 mg/dL (8.6-10.3); Magnesium 1.7 mg/dL (1.6-2.6); Potassium 3.9 mEq/L (3.5-5.1)
[2019-10-19] MEDS ORDERED: Insulin DETEMIR 100 UNIT/ML X5UNITS SQ ONE (06:22)
[2019-10-19] MEDS ORDERED: Insulin Human Regular 5 UNIT in 0.9 % Sodium Chloride 10 ML IV ONE (06:23)
[2019-10-19] MEDS: Budesonide/Formoterol 160/4.5 1 PUFF INH IH SCH ×2 (07:43→19:54)
[2019-10-19] MEDS: cefTRIAXone 1,000 MG in Water for inj. (sterile) 10 ML IVP SCH (08:31)
[2019-10-19] MEDS: Dorzolamide/Timolol 1 DROP BOTH EYES SCH (08:41)
[2019-10-19] MEDS: Gabapentin 400 MG CAPSULE PO SCH ×3 (08:42→20:34)
[2019-10-19] MEDS: Aspirin 81 MG TAB.CHEW PO SCH (08:42)
[2019-10-19] MEDS: Lurasidone 20 MG TABLET PO SCH (08:43)
[2019-10-19] MEDS: 0.9 % Sodium Chloride 1,000 ML IVC SCH (15:31)
[2019-10-19] MEDS ORDERED: Insulin LISPRO 300 UNITS/3 ML VIAL SQ SCH (16:30)
[2019-10-19] MEDS: Acetaminophen 325 MG TABLET PO PRN (20:34)
[2019-10-19] MEDS: *HR* LORazepam 1 MG TABLET PO PRN (20:40)
[2019-10-19] MEDS ORDERED: Insulin DETEMIR 100 UNIT/ML X5UNITS SQ SCH ×4 (21:00)
[2019-10-20] MEDS: 0.9 % Sodium Chloride 1,000 ML IVC SCH (01:28)
[2019-10-20 01:31] LABS: Hematocrit 31.8 % (35.3-44.9); Hemoglobin 9.7 g/dL (11.5-15.4); Mean Corpuscular HGB Conc 30.5 g/dL (31.6-35.5); Mean Corpuscular Hemoglobin 30.4 pg (28.0-33.3); Mean Corpuscular Volume 99.7 fL (83.0-100.0); Mean Platelet Volume 9.4 fL (9.4-12.4); Platelet Count 339 K/mcL (140-400); Red Blood Count 3.19 M/mcL (3.82-4.97); Red Cell Distribution Width 12.6 % (11.5-14.5); White Blood Count 13.5 K/mcL (4.3-11.1)
[2019-10-20 01:55] LABS: Calcium 7.8 mg/dL (8.6-10.3); Magnesium 1.5 mg/dL (1.6-2.6)
[2019-10-20] MEDS: Insulin LISPRO 300 UNITS/3 ML VIAL SQ SCH ×7 (07:56→21:05)
[2019-10-20] MEDS ORDERED: Aminoglycoside Consult 1 EACH MC ONE (08:43)
[2019-10-20] MEDS: Gabapentin 400 MG CAPSULE PO SCH ×3 (09:53→21:04)
[2019-10-20] MEDS: Lurasidone 20 MG TABLET PO SCH (09:53)
[2019-10-20] MEDS: Aspirin 81 MG TAB.CHEW PO SCH (09:53)
[2019-10-20] MEDS: Dorzolamide/Timolol 1 DROP BOTH EYES SCH (09:55)
[2019-10-20 10:35] LABS: Bilirubin,Urine Negative (Negative); Blood,Urine Trace (Negative); Clarity,Urine Clear (Clear); Color,Urine Yellow (Yellow); Glucose,Urine (UA) >=1000 mg/dL (Normal); Ketones,Urine Negative (Negative); Leukocyte Esterase,Urine Negative (Negative); Nitrite,Urine Negative (Negative); PH,Urine 6.5 pH Units (5.0-8.0); Protein,Urine 100 mg/dL (Neg-Trace); Specific Gravity,Urine 1.016 (1.010-1.025); Urobilinogen,Urine Normal (Normal)
[2019-10-20 10:37] LABS: Bacteria,Urine None Seen per hpf (None-Few); Hyaline Casts,Urine None Seen per lpf (None-Few); Squamous Epithelial Cell,Urine Many per lpf (None-Few); WBC,Urine 0-3 per hpf (0-3)
[2019-10-20] MEDS: Budesonide/Formoterol 160/4.5 1 PUFF INH IH SCH ×2 (10:54→22:26)
[2019-10-20] MEDS: DAPTOmycin 1,000 MG in 0.9 % Sodium Chloride 100 ML IVPB SCH (14:47)
[2019-10-20] MEDS ORDERED: Insulin DETEMIR 100 UNIT/ML X5UNITS SQ SCH ×2 (21:00)
[2019-10-20] MEDS: *HR* LORazepam 1 MG TABLET PO PRN (21:11)
[2019-10-21] MEDS: Acetaminophen 325 MG TABLET PO PRN ×2 (03:07→12:12)
[2019-10-21] MEDS: *HR* Heparin 5,000 UNIT/ML VIAL SQ SCH ×2 (05:37→16:51)
[2019-10-21 06:18] LABS: Hematocrit 29.7 % (35.3-44.9); Hemoglobin 9.4 g/dL (11.5-15.4); Mean Corpuscular HGB Conc 31.6 g/dL (31.6-35.5); Mean Corpuscular Hemoglobin 31.1 pg (28.0-33.3); Mean Corpuscular Volume 98.3 fL (83.0-100.0); Mean Platelet Volume 9.3 fL (9.4-12.4); Platelet Count 372 K/mcL (140-400); Red Blood Count 3.02 M/mcL (3.82-4.97); Red Cell Distribution Width 12.6 % (11.5-14.5); White Blood Count 12.3 K/mcL (4.3-11.1)
[2019-10-21 06:43] LABS: Albumin 2.6 g/dL (3.5-5.7); Calcium 8.1 mg/dL (8.6-10.3); Magnesium 1.5 mg/dL (1.6-2.6); Phosphorous 4.6 mg/dL (2.7-4.5); Potassium 4.2 mEq/L (3.5-5.1); Uric Acid 5.4 mg/dL (2.3-7.6)
[2019-10-21] MEDS: Budesonide/Formoterol 160/4.5 1 PUFF INH IH SCH ×2 (07:55→20:21)
[2019-10-21] MEDS: Gabapentin 400 MG CAPSULE PO SCH ×3 (08:28→21:02)
[2019-10-21] MEDS: Aspirin 81 MG TAB.CHEW PO SCH (08:29)
[2019-10-21] MEDS: Insulin LISPRO 300 UNITS/3 ML VIAL SQ SCH ×7 (08:29→21:15)
[2019-10-21] MEDS: Lurasidone 20 MG TABLET PO SCH (08:29)
[2019-10-21] MEDS: Dorzolamide/Timolol 1 DROP BOTH EYES SCH (10:03)
[2019-10-21] MEDS: DAPTOmycin 1,000 MG in 0.9 % Sodium Chloride 100 ML IVPB SCH (12:12)
[2019-10-21] MEDS ORDERED: Albumin 25% 12.5gm/50mL 12.5 GM/50 ML IV.SOLN IVPB ONE (13:34)
[2019-10-21] MEDS: *HR* LORazepam 1 MG TABLET PO PRN (21:13)
[2019-10-21] MEDS: Insulin DETEMIR 100 UNIT/ML X5UNITS SQ SCH ×2 (21:13→21:14)
[2019-10-22] MEDS: *HR* Heparin 5,000 UNIT/ML VIAL SQ SCH ×2 (05:44→18:47)
[2019-10-22 06:23] LABS: Hematocrit 31.8 % (35.3-44.9); Hemoglobin 9.8 g/dL (11.5-15.4); Mean Corpuscular HGB Conc 30.8 g/dL (31.6-35.5); Mean Corpuscular Hemoglobin 30.2 pg (28.0-33.3); Mean Corpuscular Volume 98.1 fL (83.0-100.0); Mean Platelet Volume 9.2 fL (9.4-12.4); Platelet Count 367 K/mcL (140-400); Red Blood Count 3.24 M/mcL (3.82-4.97); Red Cell Distribution Width 12.6 % (11.5-14.5); White Blood Count 12.5 K/mcL (4.3-11.1)
[2019-10-22 06:45] LABS: Calcium 8.6 mg/dL (8.6-10.3); Potassium 4.4 mEq/L (3.5-5.1)
[2019-10-22] MEDS: Budesonide/Formoterol 160/4.5 1 PUFF INH IH SCH ×2 (07:55→20:05)
[2019-10-22] MEDS: Insulin LISPRO 300 UNITS/3 ML VIAL SQ SCH ×7 (09:22→20:24)
[2019-10-22] MEDS: Lurasidone 20 MG TABLET PO SCH (09:25)
[2019-10-22] MEDS: Aspirin 81 MG TAB.CHEW PO SCH (09:25)
[2019-10-22] MEDS: Gabapentin 400 MG CAPSULE PO SCH ×3 (09:25→20:20)
[2019-10-22] MEDS: Dorzolamide/Timolol 1 DROP BOTH EYES SCH (09:26)
[2019-10-22] MEDS ORDERED: Albumin 25% 12.5gm/50mL 12.5 GM/50 ML IV.SOLN IVPB ONE (11:28)
[2019-10-22] MEDS: Acetaminophen 325 MG TABLET PO PRN (11:29)
[2019-10-22] MEDS: Ergocalciferol (VIT D2) 50,000 UNIT (1.25MG) CAP PO SCH (12:57)
[2019-10-22] MEDS: DAPTOmycin 1,000 MG in 0.9 % Sodium Chloride 100 ML IVPB SCH (14:01)
[2019-10-22] MEDS: Insulin DETEMIR 100 UNIT/ML X5UNITS SQ SCH ×2 (20:20→20:21)
[2019-10-23] MEDS: *HR* LORazepam 1 MG TABLET PO PRN ×2 (00:09→20:50)
[2019-10-23 05:22] LABS: Hematocrit 29.6 % (35.3-44.9); Hemoglobin 9.3 g/dL (11.5-15.4); Mean Corpuscular HGB Conc 31.4 g/dL (31.6-35.5); Mean Corpuscular Hemoglobin 31.1 pg (28.0-33.3); Mean Platelet Volume 9.3 fL (9.4-12.4); Platelet Count 362 K/mcL (140-400); Red Blood Count 2.99 M/mcL (3.82-4.97); Red Cell Distribution Width 12.6 % (11.5-14.5); White Blood Count 12.1 K/mcL (4.3-11.1)
[2019-10-23 05:41] LABS: Calcium 8.6 mg/dL (8.6-10.3); Potassium 4.2 mEq/L (3.5-5.1)
[2019-10-23] MEDS: *HR* Heparin 5,000 UNIT/ML VIAL SQ SCH ×2 (06:15→18:00)
[2019-10-23] MEDS: Budesonide/Formoterol 160/4.5 1 PUFF INH IH SCH ×2 (07:34→19:44)
[2019-10-23] MEDS: Insulin LISPRO 300 UNITS/3 ML VIAL SQ SCH ×7 (09:09→20:45)
[2019-10-23] MEDS: Gabapentin 400 MG CAPSULE PO SCH ×3 (09:12→20:39)
[2019-10-23] MEDS: Lurasidone 20 MG TABLET PO SCH (09:13)
[2019-10-23] MEDS: Aspirin 81 MG TAB.CHEW PO SCH (09:13)
[2019-10-23] MEDS ORDERED: 0.9 % Sodium Chloride 1,000 ML IVC SCH (10:30)
[2019-10-23 10:50] LABS: Bilirubin,Urine Negative (Negative); Blood,Urine Trace (Negative); Clarity,Urine Clear (Clear); Color,Urine Yellow (Yellow); Glucose,Urine (UA) 500 mg/dL (Normal); Ketones,Urine Negative (Negative); Leukocyte Esterase,Urine Negative (Negative); Nitrite,Urine Negative (Negative); PH,Urine 6.5 pH Units (5.0-8.0); Protein,Urine >=300 mg/dL (Neg-Trace); Specific Gravity,Urine 1.015 (1.010-1.025); Urobilinogen,Urine Normal (Normal)
[2019-10-23 10:53] LABS: Bacteria,Urine None Seen per hpf (None-Few); Hyaline Casts,Urine None Seen per lpf (None-Few); RBC,Urine 0-3 per hpf (0-3); Squamous Epithelial Cell,Urine Moderate per lpf (None-Few); WBC,Urine 0-3 per hpf (0-3)
[2019-10-23 11:24] LABS: Protein/Creatinine Ratio,Urine 13.66 mg/mg (0.00-0.20)
[2019-10-23] MEDS: Dorzolamide/Timolol OPTH 10 ML BOTTLE BOTH EYES SCH (12:02)
[2019-10-23] MEDS: DAPTOmycin 1,000 MG in 0.9 % Sodium Chloride 100 ML IVPB SCH (12:06)
[2019-10-23] MEDS: Insulin DETEMIR 100 UNIT/ML X5UNITS SQ SCH ×2 (20:39→20:40)
[2019-10-24] MEDS: Acetaminophen 325 MG TABLET PO PRN (01:14)
[2019-10-24] MEDS: *HR* Heparin 5,000 UNIT/ML VIAL SQ SCH ×2 (05:56→16:45)
[2019-10-24 06:16] LABS: Hematocrit 29.9 % (35.3-44.9); Hemoglobin 9.3 g/dL (11.5-15.4); Mean Corpuscular HGB Conc 31.1 g/dL (31.6-35.5); Mean Corpuscular Volume 99.7 fL (83.0-100.0); Mean Platelet Volume 9.5 fL (9.4-12.4); Platelet Count 372 K/mcL (140-400); Red Cell Distribution Width 12.8 % (11.5-14.5); White Blood Count 12.8 K/mcL (4.3-11.1)
[2019-10-24 06:32] LABS: Calcium 8.5 mg/dL (8.6-10.3); Potassium 4.7 mEq/L (3.5-5.1)
[2019-10-24] MEDS: Insulin LISPRO 300 UNITS/3 ML VIAL SQ SCH ×8 (07:56→20:32)
[2019-10-24] MEDS: Dorzolamide/Timolol 1 DROP BOTH EYES SCH (07:56)
[2019-10-24] MEDS: Budesonide/Formoterol 160/4.5 1 PUFF INH IH SCH ×2 (07:58→20:02)
[2019-10-24] MEDS: Aspirin 81 MG TAB.CHEW PO SCH (09:24)
[2019-10-24] MEDS: Dorzolamide/Timolol OPTH 10 ML BOTTLE BOTH EYES SCH (09:24)
[2019-10-24] MEDS: Lurasidone 20 MG TABLET PO SCH (09:24)
[2019-10-24] MEDS: Gabapentin 400 MG CAPSULE PO SCH ×3 (09:24→20:15)
[2019-10-24] MEDS ORDERED: 0.9 % Sodium Chloride 1,000 ML IVC SCH (10:15)
[2019-10-24] MEDS: DAPTOmycin 1,000 MG in 0.9 % Sodium Chloride 100 ML IVPB SCH (12:10)
[2019-10-24] MEDS: *HR* LORazepam 1 MG TABLET PO PRN (20:27)
[2019-10-24] MEDS: Insulin DETEMIR 100 UNIT/ML X5UNITS SQ SCH ×2 (20:29→20:30)
[2019-10-25] MEDS: Acetaminophen 325 MG TABLET PO PRN (04:48)
[2019-10-25] MEDS: *HR* Heparin 5,000 UNIT/ML VIAL SQ SCH ×2 (04:48→18:37)
[2019-10-25 05:03] LABS: Hematocrit 31.6 % (35.3-44.9); Hemoglobin 9.7 g/dL (11.5-15.4); Mean Corpuscular HGB Conc 30.7 g/dL (31.6-35.5); Mean Corpuscular Hemoglobin 30.1 pg (28.0-33.3); Mean Corpuscular Volume 98.1 fL (83.0-100.0); Mean Platelet Volume 9.3 fL (9.4-12.4); Platelet Count 382 K/mcL (140-400); Red Blood Count 3.22 M/mcL (3.82-4.97); White Blood Count 12.7 K/mcL (4.3-11.1)
[2019-10-25 05:31] LABS: Calcium 8.5 mg/dL (8.6-10.3); Potassium 4.6 mEq/L (3.5-5.1)
[2019-10-25] MEDS: Budesonide/Formoterol 160/4.5 1 PUFF INH IH SCH ×2 (07:54→20:42)
[2019-10-25] MEDS: Lurasidone 20 MG TABLET PO SCH (08:12)
[2019-10-25] MEDS: Aspirin 81 MG TAB.CHEW PO SCH (08:13)
[2019-10-25] MEDS: Dorzolamide/Timolol OPTH 10 ML BOTTLE BOTH EYES SCH (08:13)
[2019-10-25] MEDS: Gabapentin 400 MG CAPSULE PO SCH ×3 (08:13→21:40)
[2019-10-25] MEDS: Insulin LISPRO 300 UNITS/3 ML VIAL SQ SCH ×7 (08:13→21:40)
[2019-10-25] MEDS: DAPTOmycin 1,000 MG in 0.9 % Sodium Chloride 100 ML IVPB SCH (15:05)
[2019-10-25] MEDS: Sodium Bicarbonate 150 MEQ in D5% in Water 1,000 ML IVC SCH (15:45)
[2019-10-25] MEDS: Insulin DETEMIR 100 UNIT/ML X5UNITS SQ SCH ×2 (21:40)
[2019-10-25] MEDS: *HR* LORazepam 1 MG TABLET PO PRN (21:43)
[2019-10-26] MEDS: Sodium Bicarbonate 150 MEQ in D5% in Water 1,000 ML IVC SCH ×3 (01:34→23:01)
[2019-10-26] MEDS: *HR* Heparin 5,000 UNIT/ML VIAL SQ SCH ×2 (06:09→17:07)
[2019-10-26 06:37] LABS: Basophils # 0.1 K/mcL (0.0-0.2); Basophils % 0.8 %; Eosinophils # 0.4 K/mcL (0.0-0.6); Eosinophils % 3.3 %; Hemoglobin 9.8 g/dL (11.5-15.4); Immature Granulocytes % 5.4 % (0-4); Lymphocytes # 2.7 K/mcL (0.6-4.6); Lymphocytes % 23.7 %; Mean Corpuscular HGB Conc 31.6 g/dL (31.6-35.5); Mean Corpuscular Hemoglobin 30.7 pg (28.0-33.3); Mean Corpuscular Volume 97.2 fL (83.0-100.0); Mean Platelet Volume 9.4 fL (9.4-12.4); Monocytes # 0.9 K/mcL (0.0-1.3); Monocytes % 8.2 %; Neutrophils # 6.7 K/mcL (1.6-8.9); Platelet Count 361 K/mcL (140-400); Red Blood Count 3.19 M/mcL (3.82-4.97); Red Cell Distribution Width 12.9 % (11.5-14.5); Segmented Neutrophils % 58.6 %; White Blood Count 11.4 K/mcL (4.3-11.1)
[2019-10-26 06:55] LABS: Calcium 8.4 mg/dL (8.6-10.3); Magnesium 1.6 mg/dL (1.6-2.6); Potassium 4.5 mEq/L (3.5-5.1)
[2019-10-26 06:58] LABS: Platelet Estimate Normal (Normal)
[2019-10-26] MEDS: Insulin LISPRO 300 UNITS/3 ML VIAL SQ SCH ×6 (08:45→16:30)
[2019-10-26] MEDS: Gabapentin 400 MG CAPSULE PO SCH ×3 (08:47→20:11)
[2019-10-26] MEDS: Lurasidone 20 MG TABLET PO SCH (08:47)
[2019-10-26] MEDS: Aspirin 81 MG TAB.CHEW PO SCH (08:48)
[2019-10-26] MEDS: Budesonide/Formoterol 160/4.5 1 PUFF INH IH SCH ×2 (10:01→21:26)
[2019-10-26] MEDS: Dorzolamide/Timolol OPTH 10 ML BOTTLE BOTH EYES SCH (12:10)
[2019-10-26] MEDS: DAPTOmycin 1,000 MG in 0.9 % Sodium Chloride 100 ML IVPB SCH (14:53)
[2019-10-26] MEDS ORDERED: Insulin DETEMIR 100 UNIT/ML X5UNITS SQ ONE (15:22)
[2019-10-26] MEDS: *HR* LORazepam 1 MG TABLET PO PRN (20:12)
[2019-10-26] MEDS ORDERED: *HR* Labetalol 20 MG/4 ML SYRINGE IVP ONE (20:17)
[2019-10-26] MEDS ORDERED: Insulin DETEMIR 100 UNIT/ML X5UNITS SQ SCH (21:00)
[2019-10-27] MEDS: *HR* Heparin 5,000 UNIT/ML VIAL SQ SCH ×2 (05:14→17:18)
[2019-10-27 06:00] LABS: Basophils # 0.1 K/mcL (0.0-0.2); Basophils % 0.7 %; Eosinophils # 0.4 K/mcL (0.0-0.6); Eosinophils % 3.5 %; Hematocrit 29.7 % (35.3-44.9); Hemoglobin 9.3 g/dL (11.5-15.4); Immature Granulocytes % 3.5 % (0-4); Lymphocytes # 2.6 K/mcL (0.6-4.6); Lymphocytes % 23.5 %; Mean Corpuscular HGB Conc 31.3 g/dL (31.6-35.5); Mean Corpuscular Hemoglobin 30.2 pg (28.0-33.3); Mean Corpuscular Volume 96.4 fL (83.0-100.0); Mean Platelet Volume 9.3 fL (9.4-12.4); Monocytes # 0.9 K/mcL (0.0-1.3); Neutrophils # 6.6 K/mcL (1.6-8.9); Platelet Count 374 K/mcL (140-400); Red Blood Count 3.08 M/mcL (3.82-4.97); Segmented Neutrophils % 60.8 %; White Blood Count 10.9 K/mcL (4.3-11.1)
[2019-10-27 06:21] LABS: Calcium 8.2 mg/dL (8.6-10.3); Magnesium 1.6 mg/dL (1.6-2.6); Potassium 4.3 mEq/L (3.5-5.1)
[2019-10-27] MEDS: Sodium Bicarbonate 150 MEQ in D5% in Water 1,000 ML IVC SCH ×2 (08:52→22:04)
[2019-10-27] MEDS: Insulin DETEMIR 100 UNIT/ML X5UNITS SQ SCH ×2 (09:03→22:09)
[2019-10-27] MEDS: Gabapentin 400 MG CAPSULE PO SCH ×3 (09:03→22:06)
[2019-10-27] MEDS: Lurasidone 20 MG TABLET PO SCH (09:03)
[2019-10-27] MEDS: Dorzolamide/Timolol OPTH 10 ML BOTTLE BOTH EYES SCH (09:04)
[2019-10-27] MEDS: Aspirin 81 MG TAB.CHEW PO SCH (09:04)
[2019-10-27] MEDS: Insulin LISPRO 300 UNITS/3 ML VIAL SQ SCH ×6 (09:07→17:20)
[2019-10-27] MEDS: Budesonide/Formoterol 160/4.5 1 PUFF INH IH SCH ×2 (09:57→22:31)
[2019-10-27] MEDS: Acetaminophen 325 MG TABLET PO PRN (10:47)
[2019-10-27] MEDS: DAPTOmycin 1,000 MG in 0.9 % Sodium Chloride 100 ML IVPB SCH (12:53)
[2019-10-27] MEDS: *HR* LORazepam 1 MG TABLET PO PRN (22:09)
[2019-10-28] MEDS: *HR* Heparin 5,000 UNIT/ML VIAL SQ SCH ×2 (06:35→17:09)
[2019-10-28 06:41] LABS: Hematocrit 28.7 % (35.3-44.9); Hemoglobin 9.1 g/dL (11.5-15.4); Red Blood Count 2.95 M/mcL (3.82-4.97); White Blood Count 10.9 K/mcL (4.3-11.1)
[2019-10-28 06:42] LABS: Basophils # 0.1 K/mcL (0.0-0.2); Basophils % 0.7 %; Eosinophils # 0.4 K/mcL (0.0-0.6); Eosinophils % 3.3 %; Lymphocytes # 2.6 K/mcL (0.6-4.6); Lymphocytes % 23.7 %; Mean Corpuscular HGB Conc 31.7 g/dL (31.6-35.5); Mean Corpuscular Hemoglobin 30.8 pg (28.0-33.3); Mean Corpuscular Volume 97.3 fL (83.0-100.0); Mean Platelet Volume 9.4 fL (9.4-12.4); Monocytes # 0.8 K/mcL (0.0-1.3); Monocytes % 7.6 %; Neutrophils # 6.8 K/mcL (1.6-8.9); Platelet Count 331 K/mcL (140-400); Red Cell Distribution Width 13.3 % (11.5-14.5); Segmented Neutrophils % 62.7 %
[2019-10-28 07:05] LABS: Potassium 4.6 mEq/L (3.5-5.1)
[2019-10-28] MEDS: Budesonide/Formoterol 160/4.5 1 PUFF INH IH SCH ×2 (07:20→19:48)
[2019-10-28] MEDS ORDERED: Gabapentin 400 MG CAPSULE ONE (09:00)
[2019-10-28] MEDS ORDERED: Acetaminophen 325 MG TABLET PO ONE (09:00)
[2019-10-28] MEDS ORDERED: Lurasidone 20 MG TABLET PO ONE (09:00)
[2019-10-28] MEDS ORDERED: Aspirin 81 MG TAB.CHEW ONE (09:00)
[2019-10-28] MEDS ORDERED: Insulin LISPRO 300 UNITS/3 ML VIAL SQ ONE (09:00)
[2019-10-28] MEDS ORDERED: Sodium Bicarbonate 150 MEQ in D5% in Water 1,000 ML IVC SCH (16:41)
[2019-10-28] MEDS: Insulin LISPRO 300 UNITS/3 ML VIAL SQ SCH ×4 (17:09→17:54)
[2019-10-28] MEDS: Aspirin 81 MG TAB.CHEW PO SCH (17:54)
[2019-10-28] MEDS: Dorzolamide/Timolol OPTH 10 ML BOTTLE BOTH EYES SCH (17:54)
[2019-10-28] MEDS: Gabapentin 400 MG CAPSULE PO SCH ×3 (17:55→22:13)
[2019-10-28] MEDS: Insulin DETEMIR 100 UNIT/ML X5UNITS SQ SCH ×2 (17:55→22:13)
[2019-10-28] MEDS: Lurasidone 20 MG TABLET PO SCH (17:55)
[2019-10-28] MEDS: DAPTOmycin 1,000 MG in 0.9 % Sodium Chloride 100 ML IVPB SCH (17:56)
[2019-10-28] MEDS: *HR* LORazepam 1 MG TABLET PO PRN (22:13)
[2019-10-29 01:52] LABS: Magnesium 1.7 mg/dL (1.6-2.6)
[2019-10-29 05:36] LABS: Basophils # 0.1 K/mcL (0.0-0.2); Basophils % 0.7 %; Eosinophils # 0.4 K/mcL (0.0-0.6); Eosinophils % 3.5 %; Hematocrit 30.7 % (35.3-44.9); Hemoglobin 9.6 g/dL (11.5-15.4); Immature Granulocytes % 1.3 % (0-4); Lymphocytes # 2.8 K/mcL (0.6-4.6); Lymphocytes % 23.7 %; Mean Corpuscular HGB Conc 31.3 g/dL (31.6-35.5); Mean Corpuscular Hemoglobin 30.7 pg (28.0-33.3); Mean Corpuscular Volume 98.1 fL (83.0-100.0); Mean Platelet Volume 9.6 fL (9.4-12.4); Monocytes # 0.8 K/mcL (0.0-1.3); Neutrophils # 7.5 K/mcL (1.6-8.9); Platelet Count 358 K/mcL (140-400); Red Blood Count 3.13 M/mcL (3.82-4.97); Red Cell Distribution Width 13.4 % (11.5-14.5); Segmented Neutrophils % 63.8 %; White Blood Count 11.8 K/mcL (4.3-11.1)
[2019-10-29] MEDS: *HR* Heparin 5,000 UNIT/ML VIAL SQ SCH ×2 (05:52→17:18)
[2019-10-29 06:11] LABS: Calcium 8.3 mg/dL (8.6-10.3); Magnesium 1.6 mg/dL (1.6-2.6); Potassium 4.5 mEq/L (3.5-5.1)
[2019-10-29] MEDS: Budesonide/Formoterol 160/4.5 1 PUFF INH IH SCH ×2 (08:28→20:00)
[2019-10-29] MEDS: Aspirin 81 MG TAB.CHEW PO SCH (08:32)
[2019-10-29] MEDS: Lurasidone 20 MG TABLET PO SCH (08:32)
[2019-10-29] MEDS: Gabapentin 400 MG CAPSULE PO SCH ×3 (08:32→20:21)
[2019-10-29] MEDS: Dorzolamide/Timolol OPTH 10 ML BOTTLE BOTH EYES SCH (08:33)
[2019-10-29] MEDS: Insulin LISPRO 300 UNITS/3 ML VIAL SQ SCH ×3 (08:33→17:18)
[2019-10-29] MEDS: Insulin DETEMIR 100 UNIT/ML X5UNITS SQ SCH ×3 (08:33→20:22)
[2019-10-29] MEDS: Ergocalciferol (VIT D2) 50,000 UNIT (1.25MG) CAP PO SCH (13:29)
[2019-10-29] MEDS: DAPTOmycin 1,000 MG in 0.9 % Sodium Chloride 100 ML IVPB SCH (13:29)
[2019-10-29] MEDS: *HR* LORazepam 1 MG TABLET PO PRN (20:21)
[2019-10-30] MEDS: *HR* Heparin 5,000 UNIT/ML VIAL SQ SCH ×2 (05:28→17:56)
[2019-10-30 05:54] LABS: Basophils # 0.1 K/mcL (0.0-0.2); Basophils % 0.6 %; Eosinophils # 0.5 K/mcL (0.0-0.6); Eosinophils % 3.7 %; Hematocrit 29.3 % (35.3-44.9); Lymphocytes # 2.2 K/mcL (0.6-4.6); Lymphocytes % 17.4 %; Mean Corpuscular HGB Conc 30.7 g/dL (31.6-35.5); Mean Corpuscular Volume 97.7 fL (83.0-100.0); Mean Platelet Volume 9.5 fL (9.4-12.4); Monocytes # 0.9 K/mcL (0.0-1.3); Monocytes % 6.9 %; Neutrophils # 8.7 K/mcL (1.6-8.9); Platelet Count 336 K/mcL (140-400); Red Cell Distribution Width 13.3 % (11.5-14.5); Segmented Neutrophils % 70.4 %; White Blood Count 12.4 K/mcL (4.3-11.1)
[2019-10-30 06:26] LABS: Calcium 8.4 mg/dL (8.6-10.3); Magnesium 1.6 mg/dL (1.6-2.6); Potassium 4.5 mEq/L (3.5-5.1)
[2019-10-30] MEDS: Budesonide/Formoterol 160/4.5 1 PUFF INH IH SCH ×2 (08:10→20:17)
[2019-10-30] MEDS ORDERED: *HR* Insulin Regular U-500 500 UNIT/ML SQ SCH (08:30)
[2019-10-30] MEDS: Lurasidone 20 MG TABLET PO SCH (09:29)
[2019-10-30] MEDS: Aspirin 81 MG TAB.CHEW PO SCH (09:29)
[2019-10-30] MEDS: Gabapentin 400 MG CAPSULE PO SCH ×3 (09:29→21:30)
[2019-10-30] MEDS: Dorzolamide/Timolol OPTH 10 ML BOTTLE BOTH EYES SCH (09:33)
[2019-10-30] MEDS: Insulin DETEMIR 100 UNIT/ML X5UNITS SQ SCH ×3 (09:46→21:32)
[2019-10-30 10:02] LABS: Estimated Average Glucose 266 mg/dl
[2019-10-30] MEDS: *HR* Insulin Regular U-500 500 UNIT/ML SQ SCH ×2 (12:55→15:50)
[2019-10-30] MEDS: DAPTOmycin 1,000 MG in 0.9 % Sodium Chloride 100 ML IVPB SCH (13:04)
[2019-10-30] MEDS: *HR* LORazepam 1 MG TABLET PO PRN (21:31)
[2019-10-31 02:50] LABS: Basophils # 0.1 K/mcL (0.0-0.2); Basophils % 0.7 %; Eosinophils # 0.5 K/mcL (0.0-0.6); Eosinophils % 4.3 %; Hematocrit 29.5 % (35.3-44.9); Hemoglobin 9.3 g/dL (11.5-15.4); Lymphocytes # 2.8 K/mcL (0.6-4.6); Lymphocytes % 22.2 %; Mean Corpuscular HGB Conc 31.5 g/dL (31.6-35.5); Mean Corpuscular Hemoglobin 30.7 pg (28.0-33.3); Mean Corpuscular Volume 97.4 fL (83.0-100.0); Mean Platelet Volume 9.5 fL (9.4-12.4); Monocytes # 0.8 K/mcL (0.0-1.3); Monocytes % 6.3 %; Neutrophils # 8.2 K/mcL (1.6-8.9); Platelet Count 331 K/mcL (140-400); Red Blood Count 3.03 M/mcL (3.82-4.97); Red Cell Distribution Width 13.5 % (11.5-14.5); Segmented Neutrophils % 65.5 %; White Blood Count 12.6 K/mcL (4.3-11.1)
[2019-10-31 03:06] LABS: Calcium 8.6 mg/dL (8.6-10.3); Magnesium 1.7 mg/dL (1.6-2.6); Potassium 4.3 mEq/L (3.5-5.1)
[2019-10-31] MEDS: *HR* Heparin 5,000 UNIT/ML VIAL SQ SCH (05:15)
[2019-10-31 07:04] VITALS: BP 116/78
[2019-10-31] MEDS: Gabapentin 400 MG CAPSULE PO SCH (07:45)
[2019-10-31] MEDS: Lurasidone 20 MG TABLET PO SCH (07:45)
[2019-10-31] MEDS: Aspirin 81 MG TAB.CHEW PO SCH (07:46)
[2019-10-31] MEDS: Insulin DETEMIR 100 UNIT/ML X5UNITS SQ SCH (07:47)
[2019-10-31] MEDS: Dorzolamide/Timolol OPTH 10 ML BOTTLE BOTH EYES SCH (07:48)
[2019-10-31] MEDS: Budesonide/Formoterol 160/4.5 1 PUFF INH IH SCH (07:48)
[2019-10-31] MEDS ORDERED: *HR* Insulin Regular U-500 500 UNIT/ML SQ SCH (08:00)
== END 2019-10-31 11:00 | DRG 871 ==
LOC: 3NENU → SUATTDRO 03:07
PROVIDERS: ADMIT Family Medicine; ATTEND Pharmacist
PROC: IRDRAIN (2019-10-18 12:00)